=== PATIENT | female | born 1945 | race Hispanic/Latino ===

== ENCOUNTER 2023-12-18 14:55 | Emergency (ER) | payer MEDICARE ==
[~2023-12-18] VITALS: Ht 152.4 cm; Wt 69.4 kg
[~2023-12-18 14:55] MED LIST: LEVAQUIN500 MG PO; LEVOTHYROXINE100 MCG PO; SIMVASTATIN40 MG PO
[2023-12-18 15:15] VITALS: PULSE 76; RESP 16; TEMP 98.2; O2SAT 99
[2023-12-18] MEDS ORDERED: NAPROXEN250 MG PO (16:30)
[2023-12-18] MEDS: TRAMADOL HCL 50 MG TAB PO ONE (16:59)
[2023-12-18] MEDS: KETOROLAC TROMETHAMINE 30 MG/ML VIAL IM STA (16:59)
[2023-12-18] MEDS ORDERED: HYDROCODON-ACE1 EA11 PO (17:36)
[2023-12-18 17:50] VITALS: BP 135/75; PULSE 88; RESP 15
== END 2023-12-18 17:45 | disposition home or self-care (01) ==
LOC: ER 15:00
DX: M25.561 Pain in right knee (principal); S82.001A Unspecified fracture of right patella, initial encounter for closed fracture; W01.0XXA Fall on same level from slipping, tripping and stumbling without subsequent striking against object, initial encounter; Y92.9 Unspecified place or not applicable; E03.9 Hypothyroidism, unspecified; E78.5 Hyperlipidemia, unspecified
CPT/HCPCS: 73562; 99284; J1885